=== PATIENT | female | born 1945 | race Caucasian/White ===

== ENCOUNTER 2020-08-12 12:40 | Observation (INO) | payer MEDICARE, OTHER ==
[~2020-08-12] VITALS: Ht 160 cm; Wt 53.5 kg
[2020-08-12 13:52] LABS: HEMOGLOBIN 12.7 gm/dl (12.3-15.3); RED BLOOD COUNT 4.11 M/UL (4.00-5.10); WHITE BLOOD COUNT 6.9 K/UL (4.5-11.0)
[2020-08-12] MEDS ORDERED: VENTOLIN HFA 66.7 GM INH (16:48)
[2020-08-12] MEDS ORDERED: CLARITIN 10MG T10 MG PO (16:48)
[2020-08-12] MEDS ORDERED: AMLODIPINE BESY10 MG PO (16:50)
[2020-08-12] MEDS ORDERED: ASPIRIN EC81 MG PO (16:52)
[2020-08-12] MEDS ORDERED: ATORVASTATIN CA40 MG PO (16:53)
[2020-08-12] MEDS ORDERED: CLOPIDOGREL75 MG PO (16:54)
[2020-08-12] MEDS ORDERED: CARVEDILOL6.25 MG PO (16:54)
[2020-08-12] MEDS ORDERED: FUROSEMIDE20 MG PO (16:56)
[2020-08-12] MEDS ORDERED: HYDROCHLOROTH12.5 MG PO (16:57)
[2020-08-12] MEDS ORDERED: LISINOPRIL20 MG PO (17:00)
[2020-08-12] MEDS ORDERED: POTASSIUM CHLOR8 ME1 PO (17:00)
[2020-08-12] MEDS ORDERED: FLONASE 0.05% N16 GM (17:02)
[2020-08-13 04:25] LABS: HEMOGLOBIN 11.6 gm/dl (12.3-15.3); RED BLOOD COUNT 3.8 M/UL (4.00-5.10); WHITE BLOOD COUNT 7.3 K/UL (4.5-11.0)
[2020-08-13 04:52] LABS: BUN/CREATININE RATIO 27 (0-10)
[2020-08-13] MEDS ORDERED: MECLIZINE HCL25 MG PO (10:34)
[2020-08-13] MEDS ORDERED: KEFLEX CAP 250250 MG PO (10:40)
[2020-08-13] MEDS ORDERED: FLORASTOR250 MG PO (10:40)
== END 2020-08-13 14:25 | disposition home health service (06) ==
LOC: ER1 12:40 → M/S 14:51 → CDU 14:51 → M/S 17:29
PROVIDERS: Physician Assistant Medical; ADMIT Internal Medicine
DX: N30.00 Acute cystitis without hematuria (principal); N30.20 Other chronic cystitis without hematuria; I25.10 Atherosclerotic heart disease of native coronary artery without angina pectoris; I10 Essential (primary) hypertension; E78.5 Hyperlipidemia, unspecified; Z20.822 Contact with and (suspected) exposure to COVID-19; Z86.73 Personal history of transient ischemic attack (TIA), and cerebral infarction without residual deficits; Z95.5 Presence of coronary angioplasty implant and graft; Z79.82 Long term (current) use of aspirin; Z79.02 Long term (current) use of antithrombotics/antiplatelets; Z79.899 Other long term (current) drug therapy; Z88.0 Allergy status to penicillin; Z91.041 Radiographic dye allergy status; Z98.890 Other specified postprocedural states
CPT/HCPCS: ECHO; 70450; 71045; 80048; 80053; 81001; 82550; 82553; 83690; 83735; 83874; 84484; 85025; 85027; 85610; 85730; 87040; 87086; 93005; 93306; 93880; 96374; 97161; 99285; G0378; J0696; U0002